=== PATIENT | female | born 1985 | race American Indian/Alaskan Native ===

== ENCOUNTER 2016-11-29 12:49 | Emergency (ER) | payer OTHER ==
--- NOTE | 2016-11-29 17:26 | Emergency Department Report ---
ED Animal Bite HPI - General Chief Complaint: Animal Bite Stated Complaint: DOG BITE Time Seen by Provider: 11/29/16 17:21 Source: patient Mode of arrival: Ambulatory Limitations: No Limitations - History of Present Illness Initial Comments: Patient bit by dog today on the hand. Report made to animal control animal took taken into custody. Complaint: animal bite -: Sudden Right: Hand Animal: dog Description: immunizations unknown Mechanism: bite Associated Symptoms: bleeding. denies: chills, rash, loss of consciousness, headache - Related Data Patient Tetanus UTD: No Previous Rx's Medication Instructions Recorded Last Taken Type Azithromycin [Zithromax TAB] 500 mg PO QDAY #5 tablet 07/22/16 Unknown Rx Doxycycline [Vibramycin CAP] 100 mg PO Q12HR #20 capsule 11/29/16 Unknown Rx traMADol [Ultram 50 MG tab] 50 mg PO Q4HR PRN #12 tablet 11/29/16 Unknown Rx Allergies Allergy/AdvReac Type Severity Reaction Status Date / Time Penicillins Allergy Angioedema Verified 07/22/16 01:12 ED Review of Systems ROS: Stated complaint: DOG BITE Other details as noted in HPI Constitutional: denies: chills, fever Eyes: denies: eye pain, eye discharge, vision change ENT: denies: ear pain, throat pain Respiratory: denies: cough, shortness of breath, wheezing Musculoskeletal: other (report or wounds to thenar eminence of right hand. No deformity noted. Full range of motion intact, neurovascular motor intact, brisk cap refill noted.) Neurological: headache ED Past Medical Hx - Past Medical History Previous Medical History?: No - Surgical History Past Surgical History?: No - Social History Smoking Status: Never Smoker Substance Use Type: None - Medications Home Medications: Home Medications Medication Instructions Recorded Confirmed Last Taken Type Azithromycin [Zithromax TAB] 500 mg PO QDAY #5 tablet 07/22/16 Unknown Rx Doxycycline [Vibramycin CAP] 100 mg PO Q12HR #20 capsule 11/29/16 Unknown Rx traMADol [Ultram 50 MG tab] 50 mg PO Q4HR PRN #12 tablet 11/29/16 Unknown Rx ED Physical Exam - General Limitations: No Limitations General appearance: alert, in no apparent distress - Eye Eye exam: Present: normal appearance - ENT ENT exam: Present: mucous membranes moist - Neck Neck exam: Present: normal inspection - Respiratory Respiratory exam: Absent: respiratory distress - Expanded Upper Extremity Exam Right Hand Wrist exam: Present: full ROM, tenderness, swelling, ecchymosis, other. Absent: laceration Neuro motor exam: Present: wrist extension intact, thumb opposition intact, thumb adduction intact, fingers 2-5 abduction intact Neurosensory exam: Present: 2-point discrimination, radial nerve intact, ulnar nerve intact - Back Exam Back exam: Present: normal inspection ED Course Vital Signs 11/29/16 11/29/16 11/29/16 13:04 17:35 18:00 Temperature 98.2 F 98.9 F Pulse Rate 92 H 78 Respiratory 18 12 16 Rate Blood Pressure 159/109 Blood Pressure 143/93 [Left] O2 Sat by Pulse 100 95 Oximetry - Reevaluation(s) Reevaluation #1: 11/29/16 20:53 Patient given rabies immunoglobulin, and rabies vaccine. Patient only able to tolerate approximately 7 mL of immunoglobulin around bite and didn't bilateral hips. Patient refusing rest of immunoglobulin - Procedure Description Procedures done: Irrigated hand with copious amount of saline Betadine wash. Critical care attestation.: If time is entered above; I have spent that time in minutes in the direct care of this critically ill patient, excluding procedure time. ED Disposition Clinical Impression: Puncture wound, Dog bite Disposition: DISCHARGED TO HOME OR SELFCARE Is pt being admited?: No Does the pt Need Aspirin: No Condition: Stable Instructions: Rabies Immune Globulin (Injection), Rabies Vaccine (Injection), Rabies (ED) Prescriptions: Doxycycline [Vibramycin CAP] 100 mg PO Q12HR #20 capsule traMADol [Ultram 50 MG tab] 50 mg PO Q4HR PRN #12 tablet PRN Reason: Pain Referrals: PRIMARY CARE,MD [Primary Care Provider] - 3-5 Days Forms: Work/School Release Form(ED)
[2016-11-29] MEDS ORDERED: BOOSTRIX IM ONE (17:27)
[2016-11-29] MEDS ORDERED: CLEOCIN PO ONE (17:30)
[2016-11-29 17:36] VITALS: BP 143/93
[2016-11-29] MEDS: PERCOCET 5/325 PO PRN ×2 (18:00→20:50)
[2016-11-29] MEDS ORDERED: NACL 0.9% 1,500 ML IR ONE (18:12)
[2016-11-29] MEDS ORDERED: NACL 0.9% 1000 ML 1,000 ML ONE (18:20)
[2016-11-29] MEDS ORDERED: hyperRAB S/D IM ONE (19:28)
[2016-11-29] MEDS ORDERED: RABAVERT RABIES VACCINE(PCEC) IM ONE (20:08)
--- NOTE | 2016-11-30 09:28 | XRay Report ---
Right hand 3 views: History: Low bite. Findings: No bony or articular abnormality. No fracture dislocation or periosteal reaction. Impression: Essentially negative right hand.
== END 2016-11-29 21:02 | disposition home or self-care (01) ==
LOC: ED 12:49
DX: S61.431A Puncture wound without foreign body of right hand, initial encounter (principal); W54.0XXA Bitten by dog, initial encounter; Y93.9 Activity, unspecified; Y92.9 Unspecified place or not applicable; Y99.9 Unspecified external cause status
CPT/HCPCS: 73130; 90375; 90471; 90675; 90715; 99283; J7030

== ENCOUNTER 2016-12-06 22:42 | Emergency (ER) | payer SELFPAY ==
[2016-12-06 22:58] VITALS: BP 143/103
[2016-12-06] MEDS ORDERED: RABAVERT RABIES VACCINE(PCEC) IM ONE (23:00)
== END 2016-12-07 01:30 | disposition left against medical advice (07) ==
LOC: ED 22:42
DX: Z23 Encounter for immunization (principal); Z88.0 Allergy status to penicillin; Z53.21 Procedure and treatment not carried out due to patient leaving prior to being seen by health care provider
CPT/HCPCS: 90675

== ENCOUNTER 2016-12-08 21:34 | Emergency (ER) | payer OTHER ==
[2016-12-08] MEDS ORDERED: RABAVERT RABIES VACCINE(PCEC) IM ONE (22:09)
[2016-12-08 23:27] VITALS: BP 143/105
--- NOTE | 2016-12-08 23:36 | Emergency Department Report ---
HPI - General Chief Complaint: Wound/Laceration Time Seen by Provider: 12/08/16 23:06 - HPI HPI: 31 y/o female who for second rabies shot .pt state this is day 7 of the vaccine and was unaware to return in 3 days .pt denies any pain or discomfort at present .pt has small abrasion noted to the right hand without any redness or edema noted . ED Past Medical Hx - Past Medical History Previous Medical History?: No - Surgical History Past Surgical History?: No - Social History Smoking Status: Never Smoker Substance Use Type: None - Medications Home Medications: Home Medications Medication Instructions Recorded Confirmed Last Taken Type Azithromycin [Zithromax TAB] 500 mg PO QDAY #5 tablet 07/22/16 Unknown Rx Doxycycline [Vibramycin CAP] 100 mg PO Q12HR #20 capsule 11/29/16 Unknown Rx traMADol [Ultram 50 MG tab] 50 mg PO Q4HR PRN #12 tablet 11/29/16 Unknown Rx ED Review of Systems ROS: Stated complaint: DOG BITE Other details as noted in HPI Constitutional: denies: chills, fever Eyes: denies: eye pain, eye discharge, vision change ENT: denies: ear pain, throat pain Respiratory: denies: cough, shortness of breath, wheezing Cardiovascular: denies: chest pain, palpitations Endocrine: no symptoms reported Gastrointestinal: denies: abdominal pain, nausea, diarrhea Genitourinary: denies: urgency, dysuria, discharge Musculoskeletal: denies: back pain, joint swelling, arthralgia Skin: other. denies: rash (abrasion to right hand), lesions Neurological: denies: headache, weakness, paresthesias Psychiatric: denies: anxiety, depression Hematological/Lymphatic: denies: easy bleeding, easy bruising Physical Exam - Physical Exam Vital Signs: Vital Signs 12/08/16 12/08/16 21:57 23:26 Temperature 98.6 F 98.8 F Pulse Rate 99 H 76 Respiratory 16 16 Rate Blood Pressure 138/84 Blood Pressure 143/105 [Left] O2 Sat by Pulse 99 98 Oximetry Physical Exam: GENERAL: The patient is well-developed and well-nourished. Patient is in NAD. HENT: Normocephalic. Atraumatic. Patient has moist mucous membranes. Throat: No erythema, swelling or exudates. Ears:Tympanic membranes pearly roe ,intact , and free of exudate and erythema . EYES: Extraocular motions are intact, PERRL NECK: Supple. No meningitic signs are noted. There is no adenopathy noted. CHEST/LUNGS: Clear to auscultation bilaterally. No wheezing, rales or rhonchi noted. There is no respiratory distress noted. HEART/CARDIOVASCULAR: Regular rate and rhythm. Normal S1 S2. No murmurs, rubs , clicks, or gallops. ABDOMEN: Abdomen is soft, nontender.. Bowel sounds normoactive. There is no abdominal distention. Negative rebound tenderness. : Deferred. SKIN: abrasion noted to the right hand. There is no edema. There is no diaphoresis.Normal skin turgor NEURO: The patient is A&Ox3. The patient has no focal neurologic deficits. MUSCULOSKELETAL: There is no tenderness or deformity. There is no limitation range of motion. posture erect.Spine aligned,no deformities. PSYCH: Pt has appropriate mood and affect. ED Course Vital Signs 12/08/16 12/08/16 21:57 23:26 Temperature 98.6 F 98.8 F Pulse Rate 99 H 76 Respiratory 16 16 Rate Blood Pressure 138/84 Blood Pressure 143/105 [Left] O2 Sat by Pulse 99 98 Oximetry ED Medical Decision Making - Medical Decision Making wound recheck abrasion noted to the right hand no erythema or edema noted pt state she missed shot on day 3 but today is 7 days after dog attack pt to return in 7 days for the 3 rd shot Critical care attestation.: If time is entered above; I have spent that time in minutes in the direct care of this critically ill patient, excluding procedure time. ED Disposition Clinical Impression: Encounter for wound re-check, Puncture wound Dog bite Qualifiers: Encounter type: sequela Qualified Code(s): W54.0XXS - Bitten by dog, sequela Disposition: DISCHARGED TO HOME OR SELFCARE Is pt being admited?: No Does the pt Need Aspirin: No Condition: Stable Instructions: Animal Bite (ED), Rabies Vaccine (Injection), Rabies (ED) Additional Instructions: return in 7 days for 3rd rabies shot Referrals: PRIMARY CARE, [Primary Care Provider] - 3-5 Days Forms: Work/School Release Form(ED) Time of Disposition: 23:42
== END 2016-12-08 23:50 | disposition home or self-care (01) ==
LOC: ED 21:34
DX: S60.511S Abrasion of right hand, sequela (principal); W54.0XXA Bitten by dog, initial encounter
CPT/HCPCS: 90675; 99282

== ENCOUNTER 2016-12-21 21:12 | Emergency (ER) | payer SELFPAY | END 2016-12-21 23:50 | disposition left against medical advice (07) | LOC: ED 21:12 | DX: T14.8 Other injury of unspecified body region (principal); W54.0XXA Bitten by dog, initial encounter; Y93.9 Activity, unspecified; Y92.89 Other specified places as the place of occurrence of the external cause; Y99.9 Unspecified external cause status; Z53.21 Procedure and treatment not carried out due to patient leaving prior to being seen by health care provider ==

== ENCOUNTER 2018-03-31 09:52 | Emergency (ER) | payer SELFPAY ==
[2018-03-31 10:20] VITALS: BP 154/112
== END 2018-03-31 11:30 | disposition left against medical advice (07) ==
LOC: ED 09:52
DX: H57.12 Ocular pain, left eye (principal); Z53.21 Procedure and treatment not carried out due to patient leaving prior to being seen by health care provider